=== PATIENT | female | born 1985 | race Two or more races ===

== ENCOUNTER → 2024-03-28 | Outpatient (CLI) | payer MEDICAID, SELFPAY ==
--- NOTE | 2024-03-28 11:30 | XR_ITS ---
Examination: Transvaginal ultrasound of the pelvis, complete Technique: Transvaginal sonographic images pelvis performed using martell scale imaging Exam date and time: March 28, 2024 1119 hours INDICATIONS: Outside CT imaging one month ago uterine ovarian mass FINDINGS: Uterus 7.7 x 3.8 x 4.4 cm Intrauterine device satisfactory position Benign cervical cyst Right ovary 5.8 cm arterial flow, 4.2 x 2.9 x 3.0 cm cyst Left ovary 3.0 cm arterial flow, 2 ovarian cysts, the largest 18 x 16 x 12 mm IMPRESSION: Limited study No uterine mass Bilateral ovarian cysts Follow-up transabdominal pelvic sonography might better visualize the uterus as clinically warranted.
== END | disposition home or self-care (01) ==
PROVIDERS: PCP Nurse Practitioner Family
DX: N83.202 Unspecified ovarian cyst, left side (principal); N83.201 Unspecified ovarian cyst, right side
CPT/HCPCS: 76830

== ENCOUNTER → 2024-05-23 | Outpatient (CLI) | payer MEDICAID, SELFPAY ==
--- NOTE | 2024-05-23 09:30 | XR_ITS ---
Examination: Breast ultrasound, unilateral, left complete Date and time of exam: May 23, 2024 1036 hrs. Indications: Bilateral breast pain beginning 3 months ago. Technique: Real-time martell scale ultrasonographic imaging performed left breast including all 4 quadrants as well as nipple retroareolar and axillary region. Findings: Intramammary 3:00 lymph node This measures 10 x 7 mm Axillary lymph node 14 x 9 mm Impression: BI-RADS Category 2: Benign findings
--- NOTE | 2024-05-23 10:00 | XR_ITS ---
Examination: Diagnostic digital mammography, bilateral Computer aided detection 3-D breast Tomosynthesis, bilateral Date and time of exam: 05/23/2024: 10:50 AM Comparisons: Baseline Indications:Breast pain Technique: Nonmagnified MLO, CC views of the breasts to been obtained, reconstructed from 3-D Tomosynthesis images. R2 computer aided detection program utilized for evaluation of suspicious masses and/or abnormal calcifications. 3-D Tomosynthesis images obtained. Findings: There are scattered areas of fibroglandular density. No evidence of abnormal masses or suspicious calcifications. Impression: BI-RADS category 1: Negative findings (within normal) Recommend 1 year follow-up mammogram
== END | disposition home or self-care (01) ==
PROVIDERS: PCP Obstetrics & Gynecology; Referring Provider Advanced Practice Midwife; Visit Provider Advanced Practice Midwife
DX: N63.0 Unspecified lump in unspecified breast (principal); R92.313 Mammographic fatty tissue density, bilateral breasts
CPT/HCPCS: 76641; 77062; 77066; G0279